=== PATIENT | female | born 1940 | race Caucasian/White ===

== ENCOUNTER 2018-01-20 13:22 | Observation (INO) ==
--- NOTE | 2018-01-20 14:02 | Emergency Department Note ---
Disposition Clinical Impression: Dysuria Community acquired pneumonia Qualifiers: Laterality: left Lung location: unspecified part of lung Qualified Code(s): J18.9 - Pneumonia, unspecified organism Urinary tract infection Qualifiers: Urinary tract infection type: site unspecified Hematuria presence: without hematuria Qualified Code(s): N39.0 - Urinary tract infection, site not specified Disposition: Admitted As Inpatient Condition: Good Referrals: Joann Rider CNP [Primary Care Provider] - Forms: ED Satisfaction Letter Time of Disposition: 16:09 General Adult HPI - General Chief complaint: ED Upper Respiratory Infection Stated complaint: urinary symptoms, cough Time Seen by Provider: 01/20/18 13:43 Source: patient Limitations: no limitations Nursing Notes Reviewed: Yes Vital Signs Reviewed: Yes - History of Present Illness HPI Narrative: 77-year-old female history of CAD presents emergency department with cough and urinary symptoms. States over the past several days patient's been experiencing a nonproductive cough. She feels congested and like something needs to come out. She denies any shortness of breath associated with it. Denies any chest pain. She has been feeling more weak lately and not moving around as much. Sometimes it does hurt to cough. She also reports past 2 days she has been developing some dysuria. Describes it as burning with urination. Denies any nausea or vomiting. Denies any abdominal pain. She does feel some pressure when she urinate. States he feels like he urinary tract infection. Denies history of smoking. Pain Scale: 3 - Related Data Home Medications Medication Instructions Recorded Confirmed Aspirin Enteric Coated [Aspirin EC] 81 mg PO DAILY 01/20/18 01/20/18 Atorvastatin [Lipitor] 40 mg PO HS 01/20/18 01/20/18 Carvedilol [Coreg] 25 mg PO BID 01/20/18 01/20/18 Ciprofloxacin HCl [Cipro] 500 mg PO BID 01/20/18 01/20/18 Clopidogrel [Plavix] 75 mg PO DAILY 01/20/18 01/20/18 LORazepam [Ativan] 0.5 - 1.5 tab PO DAILY PRN 01/20/18 01/20/18 Lisinopril [Zestril] 40 mg PO DAILY 01/20/18 01/20/18 Omeprazole [PriLOSEC] 20 mg PO BID 01/20/18 01/20/18 Allergies Allergy/AdvReac Type Severity Reaction Status Date / Time No Known Allergies Allergy Verified 01/20/18 13:31 All systems ED: reviewed and negative except as stated. Review of Systems: As Per HPI Constitutional: Reports: chills. Denies: fever Cardiovascular: Denies: chest pain Respiratory: Reports: cough. Denies: dyspnea Gastrointestinal: Denies: abdominal pain, nausea, vomiting Genitourinary: Reports: dysuria. Denies: hematuria Past Medical History - Past Medical History Attestation: Yes The following information was validated with the patient. Source: patient Medical history: Reports: coronary artery disease, hypertension, myocardial infarction Psychiatric history: Reports: no psych history - Social History Smoking Status: Never smoker Alcohol use: Reports: none Drug use: Reports: none Physical Exam - General Limitations: no limitations General appearance: alert, in no apparent distress - Head Head exam: atraumatic, normocephalic, normal inspection - Eye Eye exam: Present: normal appearance, PERRL, EOMI - ENT ENT exam: normal exam, normal oropharynx, mucous membranes moist - Neck Neck exam: Present: normal inspection, full ROM, trachea midline - Chest Chest inspection: Present: normal inspection, symmetric chest wall rise. Absent : tenderness, rash - Respiratory Respiratory exam: Present: normal lung sounds bilaterally, other (diminished). Absent: respiratory distress, wheezes - Cardiovascular Cardiovascular exam: Present: regular rate, normal rhythm, normal heart sounds - Abdominal Exam Abdominal exam: Present: soft, tenderness, normal bowel sounds. Absent: Non- Tender, distention, guarding, rebound, rigidity Abdominal tenderness: Present: suprapubic - Extremities Exam Extremities exam: Present: normal inspection, full ROM, normal capillary refill. Absent: tenderness, pedal edema - Back Exam Back exam: Present: normal inspection, full ROM, CVA tenderness (L) (MILD). Absent: tenderness, CVA tenderness (R) - Neurological Exam Neurological exam: Present: alert, oriented X3 - Psychiatric Psychiatric exam: Present: normal affect, normal mood - Skin Skin exam: Present: warm, dry, intact, normal color. Absent: rash, cyanosis, diaphoresis Course Course Narrative: Patient presents with complaint of cough and dysuria. This is been ongoing for the past several days. She is convinced she has a urinary tract infection. The cough is nonproductive. No fevers. She does feel slightly weak and fatigued from it. Will obtain chest x-ray basic labs in the urinalysis. Disposition pending workup. - Reevaluation(s) Reevaluation #1: Urinalysis appears consistent with infection however it is a dirty catch. Given her symptoms will treat for urinary tract infection. She has a mild leukocytosis with left shift. Chest x-ray shows a new left basilar infiltrate concerning for pneumonia. Given her symptoms will treat for community acquired pneumonia as she has not been hospitalized the last 3 months. She denies history of smoking. In the emergency department she continues to be setting while at 93% on room air. Patient ambulated through the apartment and felt slightly weak and winded but her oxygen saturation did not fall. She lives at home with her son who is not necessarily always there. Patient was offered and will admit her for further evaluation and management. Patients in agreement with this plan. Impression is community acquired pneumonia, dysuria and urinary tract infection. Patient will be treated with ceftriaxone and azithromycin. A lactate has been added as well as a influenza swab. - Consultations Consultation #1: Spoke with on-call hospitalist christina Peña to admit for dysuria, UTI, and CAP. No further orders at this time Time: 16:05 Vital Signs Temperature 97.7 F 01/20/18 13:27 Pulse Rate 78 01/20/18 13:27 Respiratory Rate 16 01/20/18 13:27 Blood Pressure 127/75 01/20/18 13:27 O2 Sat by Pulse Oximetry 16 01/20/18 13:27 Temperature 97.7 F 01/20/18 13:27 Pulse Rate 81 01/20/18 15:25 Respiratory Rate 16 01/20/18 15:25 Blood Pressure 116/71 01/20/18 15:25 O2 Sat by Pulse Oximetry 94 01/20/18 15:25 Oxygen Delivery Oxygen Delivery Room Air Medical Decision Making - MDM Narrative Medical decision making narrative: Patient was discussed with my attending physician who agrees with ED management and final disposition. They independently evaluated the patient. Please refer to their attestation to this encounter for additional information. This note was generated by [employer] voice recognition software and as a result grammatical or spelling errors may occur using this program. - Medical Records Medical records reviewed: Yes I reviewed the patient's medical records. - Lab Data Lab results reviewed: Yes I reviewed the patient's lab results. Result diagrams: 01/20/18 13:49 01/20/18 13:49 Lab Results 01/20/18 01/20/18 01/20/18 Range/Units 13:36 13:49 13:49 WBC 12.2 H (4.3-11.1) K/mcL RBC 4.13 (3.82-4.97) M/mcL Hgb 13.5 (11.5-15.4) g/dL Hct 39.2 (35.3-44.9) % MCV 94.9 (83.0-100.0) fL MCH 32.7 (28.0-33.3) pg MCHC 34.4 (31.6-35.5) g/dL RDW 12.9 (11.5-14.5) % Plt Count 184 (140-400) K/mcL MPV 10.2 (9.4-12.4) fL Immature Gran % 0.5 (0-4) % Seg Neutrophils % 73.7 % Lymphocytes % 9.0 % Monocytes % 14.9 % Eosinophils % 1.7 % Basophils % 0.2 % Neutrophils # 9.0 H (1.6-8.9) K/mcL Lymphocytes # 1.1 (0.6-4.6) K/mcL Monocytes # 1.8 H (0.0-1.3) K/mcL Eosinophils # 0.2 (0.0-0.6) K/mcL Basophils # 0.0 (0.0-0.2) K/mcL Sodium 132 L (136-145) mEq/L Potassium 4.0 (3.5-5.1) mEq/L Chloride 100 (98-107) mEq/L Carbon Dioxide 22 L (23-29) mEq/L BUN 16 (8-23) mg/dL Creatinine 1.15 (0.60-1.20) mg/dL Est GFR ( Amer) 55 L (> 60) Est GFR (Non-Af Amer) 46 L (> 60) BUN/Creatinine Ratio 14 (6-26) Glucose 141 H (70-105) mg/dL Calculated Osmolality 278 L (280-300) Calcium 8.9 (8.6-10.3) mg/dL Urine Color [place] A (Yellow) Urine Clarity Cloudy A (Clear) Urine pH 7.0 (5.0-8.0) pH Units Ur Specific [place] 1.021 (1.010-1.025) Urine Protein 30 H (Neg-Trace) mg/dL Urine Glucose (UA) Normal (Normal) mg/dL Urine Ketones Trace H (Negative) mg/dL Urine Blood Negative (Negative) Urine Nitrite Positive A (Negative) Urine Bilirubin Small H (Negative) Urine Urobilinogen 2.0 H (Normal) mg/dL Ur Leukocyte Esterase Small H (Negative) Urine Microscopic RBC 5-15 H (0-3) per hpf Urine Microscopic WBC 15-30 H (0-3) per hpf Ur Squamous Epith Cells Many H (None-Few) per lpf Urine Bacteria None Seen (None-Few) per hpf Hyaline Casts Moderate H (None-Few) per lpf Ur Culture Indicated? NO. A (NO) - Radiology Data Radiology results reviewed: Yes I reviewed the patient's radiology results. Chest X-Ray 01/20/18 13:32 IMPRESSION: Patchy left basilar opacification, which could represent pneumonia in the appropriate clinical setting. D/ / Kalyan Masters MD / Kalyan Masters MD Interpreting Provider: Kalyan Masters MD - EKG Data EKG #1 EKG attestation: Yes I reviewed and interpreted this EKG. EKG results narrative: EKG performed 1357 normal sinus rhythm 77 beats per minute, poor R wave progression, no ST elevation or depression, Q waves in inferior leads, intervals within normal limits. Compared to prior EKG performed 10/16/2015 with similar consistent findings. No acute ischemic changes. Attestation Statement - Attestation Attestation: I, Girma Schilling DO, examined this patient [id number] and my medical decision-making was reviewed with Dr. Sabino Palomino PGY-1, Resident Physician. I agree with the documented findings, disposition and treatment plan as described except to the extent set forth below. Please see my progress notes for details.
[2018-01-20 14:05] LABS: Bilirubin,Urine Small (Negative); Blood,Urine Negative (Negative); Clarity,Urine Cloudy (Clear); Color,Urine Orange (Yellow); Glucose,Urine (UA) Normal (Normal); Ketones,Urine Trace mg/dL (Negative); Leukocyte Esterase,Urine Small (Negative); Nitrite,Urine Positive (Negative); Protein,Urine 30 mg/dL (Neg-Trace); Specific Gravity,Urine 1.021 (1.010-1.025)
[2018-01-20 14:06] LABS: Bacteria,Urine None Seen per hpf (None-Few); Hyaline Casts,Urine Moderate per lpf (None-Few); Squamous Epithelial Cell,Urine Many per lpf (None-Few); WBC,Urine 15-30 per hpf (0-3)
[2018-01-20 14:09] LABS: Basophils % 0.2 %; Eosinophils # 0.2 K/mcL (0.0-0.6); Eosinophils % 1.7 %; Hematocrit 39.2 % (35.3-44.9); Hemoglobin 13.5 g/dL (11.5-15.4); Immature Granulocytes % 0.5 % (0-4); Lymphocytes # 1.1 K/mcL (0.6-4.6); Mean Corpuscular HGB Conc 34.4 g/dL (31.6-35.5); Mean Corpuscular Hemoglobin 32.7 pg (28.0-33.3); Mean Corpuscular Volume 94.9 fL (83.0-100.0); Mean Platelet Volume 10.2 fL (9.4-12.4); Monocytes # 1.8 K/mcL (0.0-1.3); Monocytes % 14.9 %; Platelet Count 184 K/mcL (140-400); Red Blood Count 4.13 M/mcL (3.82-4.97); Red Cell Distribution Width 12.9 % (11.5-14.5); Segmented Neutrophils % 73.7 %
[2018-01-20 14:49] LABS: Calcium 8.9 mg/dL (8.6-10.3)
--- NOTE | 2018-01-20 15:28 | Emergency Department Note ---
Disposition Clinical Impression: Community acquired pneumonia, Dysuria, Urinary tract infection Disposition: Admitted As Inpatient Condition: Fair Referrals: Joann Rider CNP [Primary Care Provider] - Forms: ED Satisfaction Letter Time of Disposition: 16:15 General Adult HPI - General Chief complaint: ED Upper Respiratory Infection Stated complaint: urinary symptoms, cough Time Seen by Provider: 01/20/18 13:43 Source: patient Limitations: no limitations - History of Present Illness Pain Scale: 3 - Related Data Home Medications Medication Instructions Recorded Confirmed Aspirin Enteric Coated [Aspirin EC] 81 mg PO DAILY 01/20/18 01/20/18 Atorvastatin [Lipitor] 40 mg PO HS 01/20/18 01/20/18 Carvedilol [Coreg] 25 mg PO BID 01/20/18 01/20/18 Ciprofloxacin HCl [Cipro] 500 mg PO BID 01/20/18 01/20/18 Clopidogrel [Plavix] 75 mg PO DAILY 01/20/18 01/20/18 LORazepam [Ativan] 0.5 - 1.5 tab PO DAILY PRN 01/20/18 01/20/18 Lisinopril [Zestril] 40 mg PO DAILY 01/20/18 01/20/18 Omeprazole [PriLOSEC] 20 mg PO BID 01/20/18 01/20/18 Allergies Allergy/AdvReac Type Severity Reaction Status Date / Time No Known Allergies Allergy Verified 01/20/18 13:31 Constitutional: Reports: chills. Denies: fever Cardiovascular: Denies: chest pain Respiratory: Reports: cough. Denies: dyspnea Gastrointestinal: Denies: abdominal pain, nausea, vomiting Genitourinary: Reports: dysuria. Denies: hematuria Past Medical History - Past Medical History Medical history: Reports: coronary artery disease, hypertension, myocardial infarction Psychiatric history: Reports: no psych history - Social History Smoking Status: Never smoker Alcohol use: Reports: none Drug use: Reports: none Physical Exam - General Limitations: no limitations General appearance: alert, in no apparent distress Course Vital Signs Temperature 97.7 F 01/20/18 13:27 Pulse Rate 78 01/20/18 13:27 Respiratory Rate 16 01/20/18 13:27 Blood Pressure 127/75 01/20/18 13:27 O2 Sat by Pulse Oximetry 16 01/20/18 13:27 Temperature 97.7 F 01/20/18 13:27 Pulse Rate 81 01/20/18 15:25 Respiratory Rate 16 01/20/18 15:25 Blood Pressure 116/71 01/20/18 15:25 O2 Sat by Pulse Oximetry 94 01/20/18 15:25 Oxygen Delivery Oxygen Delivery Room Air Medical Decision Making - Lab Data Result diagrams: 01/20/18 13:49 01/20/18 13:49 Lab Results 01/20/18 01/20/18 01/20/18 Range/Units 13:36 13:49 13:49 WBC 12.2 H (4.3-11.1) K/mcL RBC 4.13 (3.82-4.97) M/mcL Hgb 13.5 (11.5-15.4) g/dL Hct 39.2 (35.3-44.9) % MCV 94.9 (83.0-100.0) fL MCH 32.7 (28.0-33.3) pg MCHC 34.4 (31.6-35.5) g/dL RDW 12.9 (11.5-14.5) % Plt Count 184 (140-400) K/mcL MPV 10.2 (9.4-12.4) fL Immature Gran % 0.5 (0-4) % Seg Neutrophils % 73.7 % Lymphocytes % 9.0 % Monocytes % 14.9 % Eosinophils % 1.7 % Basophils % 0.2 % Neutrophils # 9.0 H (1.6-8.9) K/mcL Lymphocytes # 1.1 (0.6-4.6) K/mcL Monocytes # 1.8 H (0.0-1.3) K/mcL Eosinophils # 0.2 (0.0-0.6) K/mcL Basophils # 0.0 (0.0-0.2) K/mcL Sodium 132 L (136-145) mEq/L Potassium 4.0 (3.5-5.1) mEq/L Chloride 100 (98-107) mEq/L Carbon Dioxide 22 L (23-29) mEq/L BUN 16 (8-23) mg/dL Creatinine 1.15 (0.60-1.20) mg/dL Est GFR ( Amer) 55 L (> 60) Est GFR (Non-Af Amer) 46 L (> 60) BUN/Creatinine Ratio 14 (6-26) Glucose 141 H (70-105) mg/dL Calculated Osmolality 278 L (280-300) Calcium 8.9 (8.6-10.3) mg/dL Urine Color [place] A (Yellow) Urine Clarity Cloudy A (Clear) Urine pH 7.0 (5.0-8.0) pH Units Ur Specific [place] 1.021 (1.010-1.025) Urine Protein 30 H (Neg-Trace) mg/dL Urine Glucose (UA) Normal (Normal) mg/dL Urine Ketones Trace H (Negative) mg/dL Urine Blood Negative (Negative) Urine Nitrite Positive A (Negative) Urine Bilirubin Small H (Negative) Urine Urobilinogen 2.0 H (Normal) mg/dL Ur Leukocyte Esterase Small H (Negative) Urine Microscopic RBC 5-15 H (0-3) per hpf Urine Microscopic WBC 15-30 H (0-3) per hpf Ur Squamous Epith Cells Many H (None-Few) per lpf Urine Bacteria None Seen (None-Few) per hpf Hyaline Casts Moderate H (None-Few) per lpf Ur Culture Indicated? NO. A (NO) Attestation Statement - Attestation Attestation: I, Girma Schilling DO, examined this patient [id number] and my medical decision-making was reviewed with Andrea Kelley DO , Resident Physician. I agree with the documented findings, disposition and treatment plan as described except to the extent set forth below. Please see my progress notes for details. 77-year-old female presents emergency room with complaint of cough congestion and a sore throat. She is also had urinary symptoms. She has long-standing history of urinary tract infections. She denies any specific fever or chills nausea vomiting or diarrhea. Denies any chest pain or shortness of breath. Currently denying any fevers or chills. Patient's vital signs reviewed and are stable. She does not appear to have any signs of hypoxia tachycardia or hypertension on arrival. She does have chronic medical issues she takes medications and none of those medications at change this time. Physical exam shows intermittent coarse breath sounds are clear with coughing. Otherwise lungs are clear to auscultation heart is regular abdomen is soft nontender nondistended with slight tenderness suprapubically but no guarding or rigidity. No CVA tenderness is noted on exam. Patient is concerning for underlying infectious etiology. Influenza swab yet on chest x-ray EKG labs including CBC chemistry troponin and urinalysis will be resulted. Disposition will be determined workup and treatment course are established. Patient does live at home with a son but he is not present often at the house and she does not rely on him for any other normal axis daily living. We will continue to monitor here until disposition and treatment course are completed. See detailed documentation of the physical exam, medical intervention, medical decision- making and disposition in the resident physician's note. No care provider the patient's treatment course at this time. 1500 Patient's chest x-ray does show a new pneumonia as well as a urinary tract infection. Labs are otherwise stable this point with no significant outliers. Patient will have ambulation attempted using the emergency room. During the ambulation patient denied any significant shortness of breath she does fill it was difficult to take a full breath in. Her pulse ox did not drop. Vital signs remain stable. Because of a context of the pneumonia as well as urinary tract infection antibiotics blood cultures were ordered as well as a lactic acid despite the patient not having acute signs of sepsis. Patient will most likely be admitted secondary to lack of resources at home and the concern for her decompensating signature to to infectious sources at this point. Admission process to be completed. Patient was discussed with the hospitalist. No other recommendations noted this time. Patient will be admitted. Hospitalist was at the bedside here in the emergency room and has evaluated the patient. No other concerns or issues noted at this point.
[2018-01-20] MEDS ORDERED: Azithromycin 500 MG in D5% in Water 250 ML IVPB ONE (15:29)
[2018-01-20] MEDS ORDERED: cefTRIAXone 2,000 MG in Water for inj. (sterile) 20 ML 20 ML IVP ONE (15:34)
[2018-01-20] MEDS ORDERED: Naloxone 0.4 MG/ML INJ IVP PRN (16:24)
[2018-01-20] MEDS ORDERED: *HR* OxyCODONE Immed Rel 5 MG TABLET PO PRN (16:24)
[2018-01-20] MEDS ORDERED: *HR* HYDROcodone/Acet 5/325 mg TABLET PO PRN (16:24)
[2018-01-20] MEDS ORDERED: Acetaminophen 325 MG TABLET PO PRN (16:24)
--- NOTE | 2018-01-20 16:29 | Internal Med History&Physical ---
Date of Encounter: 01/20/18 Time of Encounter: 16:27 Internal Medicine - H&P: HPI Chief complaint: Cough and burning with urinating Admitted From: Emergency Dept History of present illness: Ms. Pearl is a 77 year old female CAD status post stents, hypertension, hyperlipidemia, GERD who came to emergency room complaining of 3 days of coughing, pleuritic left chest pain, dysuria for the past 2 days. The patient says she is bringing up some phlegm, night sweats, non- quantified fevers, but this account is 12.2 creatinine is 1.15 which is increased from the prior value of 0.95. UA shows 30 white blood cells and positive nitrates, chest x-ray shows a left lower lobe opacity. Patient mentions that her son was recently treated for pneumonia. Sodium is 132. Feels very weak and mentions that she can go home later that Past Med Surg Social Fam HX - Past Medical History Medical history: coronary artery disease (Status post stents), GERD, hyperlipidemia, hypertension, myocardial infarction, other (Anxiety) - Past Surgical History Surgical History: other (Cardiac catheterization) - Social History Smoking Status: Never smoker Alcohol use: none Drug use: none - Additional Family History Additional family history: Mother with a myocardial infarction in her 80s Internal Medicine - H&P: Meds Aspirin Enteric Coated [Aspirin EC] 81 mg PO DAILY 01/20/18 [History] Atorvastatin [Lipitor] 40 mg PO HS 01/20/18 [History] Carvedilol [Coreg] 25 mg PO BID 01/20/18 [History] Ciprofloxacin HCl [Cipro] 500 mg PO BID 01/20/18 [History] Clopidogrel [Plavix] 75 mg PO DAILY 01/20/18 [History] LORazepam [Ativan] 0.5 - 1.5 tab PO DAILY PRN 01/20/18 [History] Lisinopril [Zestril] 40 mg PO DAILY 01/20/18 [History] Omeprazole [PriLOSEC] 20 mg PO BID 01/20/18 [History] 3 Allergy/AdvReac Type Severity Reaction Status Date / Time No Known Allergies Allergy Verified 01/20/18 13:31 All Systems PM: A 10-system review of systems was performed and is negative for pertinent findings except as documented above in the HPI. Review of systems: No abdominal pain or diarrhea, other systems out of the 10 reviewed were negative - Constitutional Vitals: Temp Pulse Resp BP Pulse Ox 97.7 F 81 16 116/71 94 01/20/18 13:27 01/20/18 15:25 01/20/18 15:25 01/20/18 15:25 01/20/18 15:25 General appearance: Present: A&O X 3 - Head Head exam: Present: atraumatic, normocephalic - Eye Eye exam: Present: PERRL, conjuntiva pink, sclera anicteric Pupils: Present: PERRL - Neck Neck exam general surgery: Present: supple, trachea midline. Absent: lymphadenopathy - Respiratory Respiratory exam: Present: CTAB, rales (Left basilar crackles). Absent: accessory muscle use, rhonchi, wheezes - Cardiovascular Cardiovascular exam: Present: RRR, +S1, +S2. Absent: diastolic murmur, gallop, rubs, systolic murmur - GI/Abdominal GI/Abdominal exam: Present: normal bowel sounds, soft, no peritoneal signs. Absent: distended, tenderness - Extremities Exam Extremities exam: Present: warm, radial pulses palpable and symmetrical. Absent : calf tenderness, cyanotic, pedal edema - Neurological Exam Neurological exam: Present: CN II-XII intact, oriented X3, no focal deficits. Absent: pronater drift, facial droop, speech deficit - Skin Skin exam: Present: dry, intact Internal Med - H&P Results - Labs CBC & Chem 7: 01/20/18 13:49 01/20/18 13:49 - Assessment and plan (1) Community acquired pneumonia Current Visit: Yes Status: Acute Assessment and plan: severe weakness and dehy community-acquir/unknown agent and urinary tract infection Continue Rocephin and azithromycin, blood cultures and urine culture Check Legionella IV fluids Omeprazole for GI prophylaxis and subcutaneous heparin for DVT prophylaxis. The patient will be admitted for observation, full code. Time spent on this admission 40 minutes Qualifiers: Laterality: left Lung location: lower lobe of lung Qualified Code(s): J18.1 - Lobar pneumonia, unspecified organism (2) Dehydration Current Visit: Yes Status: Acute (3) Weakness Current Visit: Yes Status: Acute (4) Dysuria Current Visit: Yes Status: Acute (5) Urinary tract infection Current Visit: Yes Status: Acute Qualifiers: Urinary tract infection type: site unspecified Hematuria presence: without hematuria Qualified Code(s): N39.0 - Urinary tract infection, site not specified (6) Leukocytosis Current Visit: Yes Status: Acute Qualifiers: Leukocytosis type: unspecified Qualified Code(s): D72.829 - Elevated white blood cell count, unspecified (7) Hyponatremia Current Visit: Yes Status: Acute Assessment and plan: Recheck in the morning - Time Spent With Patient Total time spent is greater than 50% in coordination of care (as documented) at patient's floor/unit and/or counseling patient:
[2018-01-20] MEDS ORDERED: Ondansetron 4 MG/2 ML VIAL IVP PRN (16:34)
[2018-01-20] MEDS ORDERED: Azithromycin 500 MG in D5% in Water 250 ML IVPB SCH (17:00)
[2018-01-20] MEDS: 0.9 % Sodium Chloride 1,000 ML IVC SCH (18:11)
[2018-01-20] MEDS ORDERED: GuaiFENesin Liq 200 MG/10 ML UDC PO PRN (20:04)
[2018-01-20] MEDS: *HR* LORazepam 1 MG TABLET PO PRN (20:52)
[2018-01-20] MEDS: *HR* Heparin 5,000 UNIT/ML VIAL SQ SCH (20:53)
[2018-01-20 22:00] LABS: Bilirubin,Urine Negative (Negative); Blood,Urine Negative (Negative); Clarity,Urine Clear (Clear); Color,Urine Yellow (Yellow); Glucose,Urine (UA) Normal (Normal); Ketones,Urine Negative (Negative); Leukocyte Esterase,Urine Negative (Negative); Nitrite,Urine Negative (Negative); PH,Urine 6.5 pH Units (5.0-8.0); Protein,Urine Negative (Neg-Trace); Specific Gravity,Urine 1.008 (1.010-1.025); Urobilinogen,Urine Normal (Normal)
[2018-01-21] MEDS: *HR* Heparin 5,000 UNIT/ML VIAL SQ SCH ×3 (05:52→21:13)
[2018-01-21] MEDS: 0.9 % Sodium Chloride 1,000 ML IVC SCH (05:56)
[2018-01-21] MEDS: *HR* LORazepam 1 MG TABLET PO PRN (06:02)
[2018-01-21 06:04] LABS: Hematocrit 35.9 % (35.3-44.9); Hemoglobin 12.5 g/dL (11.5-15.4); Mean Corpuscular HGB Conc 34.8 g/dL (31.6-35.5); Mean Corpuscular Hemoglobin 32.8 pg (28.0-33.3); Mean Corpuscular Volume 94.2 fL (83.0-100.0); Mean Platelet Volume 10.8 fL (9.4-12.4); Platelet Count 166 K/mcL (140-400); Red Blood Count 3.81 M/mcL (3.82-4.97); Red Cell Distribution Width 12.7 % (11.5-14.5)
[2018-01-21 06:21] LABS: BUN/Creatinine Ratio 11 (6-26); Blood Urea Nitrogen 10 mg/dL (8-23); Calcium 8.4 mg/dL (8.6-10.3); Carbon Dioxide 22 mEq/L (23-29); Chloride 104 mEq/L (98-107); Glucose 135 mg/dL (70-105); Osmolality,Calculated 281 (280-300); Potassium 3.7 mEq/L (3.5-5.1); Sodium 135 mEq/L (136-145); eGFR For African Americans > 60 (> 60); eGFR For Non-African Americans > 60 (> 60)
[2018-01-21] MEDS: Aspirin Enteric Coated 81 MG Tablet PO SCH (08:17)
[2018-01-21] MEDS: Lisinopril 20 MG TABLET PO SCH (08:17)
[2018-01-21] MEDS: cefTRIAXone 1,000 MG in Water for inj. (sterile) 20 ML 10 ML IVP SCH (08:17)
--- NOTE | 2018-01-21 11:50 | Internal Med Progress Note ---
Date of Encounter: 01/21/18 Time of Encounter: 11:52 - Assessment and plan (1) Community acquired pneumonia Current Visit: Yes Status: Acute Assessment and plan: CXR inserting for pneumonia. Symptomatic with cough, wheezing. Continue IV ceftriaxone and azithromycin. Respiratory PCR and urinary antigens pending Qualifiers: Laterality: left Lung location: lower lobe of lung Qualified Code(s): J18.1 - Lobar pneumonia, unspecified organism (2) Dysuria Current Visit: Yes Status: Acute Assessment and plan: per patient complaint. UA slightly abnormal; not clearly indicative of UTI. On ceftriaxone as noted above which would likely cover for possible UTI. (3) Leukocytosis Current Visit: Yes Status: Acute Assessment and plan: WBC 12 K; in the setting of pneumonia and abnormal UA. Continue IV ceftriaxone and Rocephin. WBC normalized. Qualifiers: Leukocytosis type: unspecified Qualified Code(s): D72.829 - Elevated white blood cell count, unspecified (4) Dehydration Current Visit: Yes Status: Acute Assessment and plan: Continue gentle IV hydration (5) Weakness Current Visit: Yes Status: Acute Assessment and plan: In the setting of pneumonia and possible UTI. Continue treating underlying causes. Suspect she will return home with no anticipated needs (6) Hyponatremia Current Visit: Yes Status: Acute Assessment and plan: mild. Na 132. Remained neurologically intact. Repeat sodium improved with IV fluids. (7) DVT prophylaxis Current Visit: Yes Status: Acute Assessment and plan: heparin - Time Spent With Patient Total time spent is greater than 50% in coordination of care (as documented) at patient's floor/unit and/or counseling patient: - Subjective Interval history: Seen At Bedside. Patient Is New to Me, Information Obtained from Chart Review and Patient Report. Says she still weak and tired but overall improved. Thinks she needs another night in the hospital with IV fluids and IV antibiotics. Still having a cough, nonproductive. No relief with Robitussin. No fevers or chills. - Constitutional Vitals: Temp Pulse Resp BP Pulse Ox 98.6 F 76 16 96/62 94 01/21/18 11:15 01/21/18 11:15 01/21/18 11:15 01/21/18 11:15 01/21/18 11:15 General appearance: Present: A&O X 3, no acute distress - Head Head exam: Present: atraumatic, normocephalic - Eye Eye exam: Present: PERRL, conjuntiva pink, sclera anicteric Pupils: Present: PERRL - Neck Neck exam general surgery: Present: supple, trachea midline. Absent: lymphadenopathy - Respiratory Respiratory exam: Present: wheezes. Absent: accessory muscle use, rales, rhonchi - Cardiovascular Cardiovascular exam: Present: RRR, +S1, +S2. Absent: diastolic murmur, gallop, rubs, systolic murmur - GI/Abdominal GI/Abdominal exam: Present: normal bowel sounds, soft, no peritoneal signs. Absent: distended, tenderness - Extremities Exam Extremities exam: Present: warm, radial pulses palpable and symmetrical. Absent : calf tenderness, cyanotic, pedal edema - Neurological Exam Neurological exam: Present: CN II-XII intact, oriented X3, no focal deficits. Absent: pronater drift, facial droop, speech deficit - Skin Skin exam: Present: dry, intact Internal Medicine: Result - Labs CBC & Chem 7: 01/21/18 05:00 01/21/18 05:00 Labs: Short CBC 01/21/18 Range/Units 05:00 WBC 10.4 (4.3-11.1) K/mcL Hgb 12.5 (11.5-15.4) g/dL Hct 35.9 (35.3-44.9) % Plt Count 166 (140-400) K/mcL BMP 01/21/18 05:00 Sodium 135 L Potassium 3.7 Chloride 104 Carbon Dioxide 22 L BUN 10 Creatinine 0.90 Glucose 135 H Calcium 8.4 L Urine 01/20/18 Range/Units 21:05 Urine Color Yellow (Yellow) Urine Clarity Clear (Clear) Urine pH 6.5 (5.0-8.0) pH Units Ur Specific [place] 1.008 L (1.010-1.025) Urine Protein Negative (Neg-Trace) mg/dL Urine Glucose (UA) Normal (Normal) mg/dL Consult Discharge Plan - Plan Referrals: Joann Rider, [employer] SECUR[employer] CONSULTANT [Primary Care Provider] -
[2018-01-21] MEDS: GuaiFENesin Liq 200 MG/10 ML UDC PO SCH ×3 (12:24→21:13)
[2018-01-21] MEDS: predniSONE 20 MG TABLET PO SCH (12:24)
[2018-01-21 13:39] LABS: Adenovirus Not Detected (Not Detect); Bordetella Pertussis Not Detected (Not Detect); Chlamydophila pneumoniae Not Detected (Not Detect); Coronavirus 229E Not Detected (Not Detect); Coronavirus HKU1 Not Detected (Not Detect); Coronavirus NL63 Not Detected (Not Detect); Coronavirus OC43 Not Detected (Not Detect); Human Metapneumovirus Not Detected (Not Detect); Human Rhinovirus/Enterovirus Not Detected (Not Detect); Influenza A Subtype 2009 H1 Not Detected (Not Detect); Influenza A Untypeable Not Detected (Not Detect); Influenza B Not Detected (Not Detect); Mycoplasma pneumoniae Not Detected (Not Detect); Parainfluenza Virus 1 Not Detected (Not Detect); Parainfluenza Virus 2 Not Detected (Not Detect); Parainfluenza Virus 3 Not Detected (Not Detect); Parainfluenza Virus 4 Not Detected (Not Detect); Respiratory Syncytial Virus Not Detected (Not Detect)
[2018-01-21] MEDS ORDERED: Azithromycin 500 MG in D5% in Water 250 ML IVPB SCH (17:00)
[2018-01-21] MEDS ORDERED: *HR* LORazepam 0.5 MG TABLET PO ONE (21:48)
[2018-01-22] MEDS: GuaiFENesin Liq 200 MG/10 ML UDC PO SCH ×3 (00:25→10:02)
[2018-01-22] MEDS: *HR* Heparin 5,000 UNIT/ML VIAL SQ SCH (04:47)
[2018-01-22 07:31] VITALS: BP 166/78
--- NOTE | 2018-01-22 09:32 | Discharge Summary ---
- NOTES TO OUTPATIENT PROVIDER Notes to Outpatient Provider: Recommend routine hospital follow-up within one week Date of Encounter: 01/22/18 Time of Encounter: 09:27 - Discharge Diagnosis (1) Community acquired pneumonia Priority: Primary Status: Acute Assessment and Plan: possible. CXR concerning for pneumonia. Symptomatic with cough, wheezing. Resp PCR and urinary antigens negative. Treated with IV ceftriaxone and azithromycin. Z-Arias and steroids at discharge. Recommend follow-up with PCP within one week Qualifiers: Laterality: left Lung location: lower lobe of lung Qualified Code(s): J18.1 - Lobar pneumonia, unspecified organism (2) Dysuria Priority: Primary Status: Resolved Assessment and Plan: per patient complaint. UA slightly abnormal, urine culture negative. Received ceftriaxone as noted above which would likely cover for possible UTI. Asymptomatic. (3) Leukocytosis Priority: Primary Status: Acute Assessment and Plan: WBC 12 K; in the setting of possible pneumonia. Did not appear toxic or acute. No tachycardia or hypotension. Treating for pneumonia as noted above. WBC normalized. Qualifiers: Leukocytosis type: unspecified Qualified Code(s): D72.829 - Elevated white blood cell count, unspecified (4) Dehydration Priority: Primary Status: Acute Assessment and Plan: treated with IV fluids. (5) Weakness Priority: Primary Status: Acute Assessment and Plan: In the setting of pneumonia. Return to baseline with treating underlying pneumonia. (6) Hyponatremia Priority: Primary Status: Acute Assessment and Plan: mild. Na 132. Remained neurologically intact. Na improved to 135 (7) CAD (coronary artery disease) Priority: Secondary Status: Chronic Assessment and Plan: per hx. Asymptomatic. Denied chest pain. Continue home medications. Qualifiers: Coronary Disease-Associated Artery/Lesion type: [place] artery [place] vs. transplanted heart: [place] heart Associated angina: without angina Qualified Code(s): I25.10 - Atherosclerotic heart disease of [place] coronary artery without angina pectoris Hospital course: Please see assessment and plan for Hospital course Discharge discussed with: patient (Seen and examined at bedside. Patient says she feels better would like to discharge home today. Says cough is significantly improved and she is not wheezing as much. No chest pain or shortness of breath. Tolerating regular diet until she has regained strength. Advised to follow-up with PCP within 3-5 days.) - Time Spent with Patient Total time spent providing and/or coordinating discharge services: - Discharge Medications Prescriptions: Azithromycin [Azithromycin 6-Tab Pack] 250 mg PO PER PKG DI #6 tab predniSONE [PredniSONE] 40 mg PO DAILY 3 Days #6 tablet Home Medications: Aspirin Enteric Coated [Aspirin EC] 81 mg PO DAILY 01/20/18 [History] Atorvastatin [Lipitor] 40 mg PO HS 01/20/18 [History] Carvedilol [Coreg] 25 mg PO BID 01/20/18 [History] Clopidogrel [Plavix] 75 mg PO DAILY 01/20/18 [History] LORazepam [Ativan] 0.5 - 1.5 tab PO DAILY PRN 01/20/18 [History] Lisinopril [Zestril] 40 mg PO DAILY 01/20/18 [History] Omeprazole [PriLOSEC] 20 mg PO BID 01/20/18 [History] Azithromycin [Azithromycin 6-Tab Pack] 250 mg PO PER PKG DI #6 tab 01/22/18 [Rx] predniSONE [PredniSONE] 40 mg PO DAILY 3 Days #6 tablet 01/22/18 [Rx] Allergies/Adverse Reactions: 3 Allergy/AdvReac Type Severity Reaction Status Date / Time No Known Allergies Allergy Verified 01/20/18 13:31 Date of admission: 01/20/18 16:16 Primary care physician: Joann Rider CNP Discharging clinician: Shey Blair Anticipated date of discharge: 01/22/18 - Constitutional Vitals: Temp Pulse Resp BP Pulse Ox 98.2 F 74 14 166/78 94 01/22/18 07:30 01/22/18 07:30 01/22/18 07:30 01/22/18 07:30 01/22/18 07:30 General appearance: Present: A&O X 3, no acute distress - Head Head exam: Present: atraumatic, normocephalic - Eye Eye exam: Present: PERRL, conjuntiva pink, sclera anicteric Pupils: Present: PERRL - Neck Neck exam general surgery: Present: supple, trachea midline. Absent: lymphadenopathy - Respiratory Respiratory exam: Present: CTAB. Absent: accessory muscle use, rales, rhonchi, wheezes - Cardiovascular Cardiovascular exam: Present: RRR, +S1, +S2. Absent: diastolic murmur, gallop, rubs, systolic murmur - GI/Abdominal GI/Abdominal exam: Present: normal bowel sounds, soft, no peritoneal signs. Absent: distended, tenderness - Extremities Exam Extremities exam: Present: warm, radial pulses palpable and symmetrical. Absent : calf tenderness, cyanotic, pedal edema - Neurological Exam Neurological exam: Present: CN II-XII intact, oriented X3, no focal deficits. Absent: pronater drift, facial droop, speech deficit - Skin Skin exam: Present: dry, intact - Patient Status Disposition: Home, Self-Care Condition: Good Functional capacity at discharge: independent ambulation Overall status at discharge: patient is back to baseline - Discharge Instructions Instructions: Prednisone (By mouth), Azithromycin (By mouth) Follow Up With: Joann Rider [employer]ER [Primary Care Provider] - (Please call for follow-up appt within 3-5 days ) - Diet and Activity Activity: increase activity as tolerated Diet: advance to your usual diet - VTE Documentation of Mechanical Device: Intermittent pneumatic compression device
[2018-01-22] MEDS: cefTRIAXone 1,000 MG in Water for inj. (sterile) 20 ML 10 ML IVP SCH (10:02)
[2018-01-22] MEDS: Aspirin Enteric Coated 81 MG Tablet PO SCH (10:02)
[2018-01-22] MEDS: Lisinopril 20 MG TABLET PO SCH (10:02)
[2018-01-22] MEDS: predniSONE 20 MG TABLET PO SCH (10:02)
--- NOTE | 2018-01-23 16:36 | Electrocardiograph Report ---
[place] [address] Test Date: 2018-01-20 Pat Name: Narcisa Pearl Department: 102 Room: 3B24 Gender: F Receiver Dispatcher: Meño : 1940 Requested By: Cally Sapp Order Number: [id number] Reading MD: Stuart Carr Measurements Intervals [place] Rate: 77 P: 48 MI: 137 QRS: -14 QRSD: 87 T: 29 QT: 340 QTc: 371 Interpretive Statements SINUS RHYTHM LOW QRS VOLTAGE IN PRECORDIAL LEADS Poor R wave progression Electronically Signed On 01-23-2018 16:34:10 EDT by Stuart Carr
== END 2018-01-22 12:44 | disposition home or self-care (01) ==
LOC: 3BNU 13:22 → EMEROO 13:22 → SUATTDRO 16:16 → 3BNU 17:14
PROVIDERS: ADMIT Internal Medicine; ATTEND Registered Nurse